=== PATIENT | male | born 1990 | race Caucasian/White ===

== ENCOUNTER 2017-05-19 01:59 | Emergency (ER) | payer OTHER ==
[~2017-05-19] VITALS: Ht 185.4 cm; Wt 72.6 kg
[2017-05-19] MEDS ORDERED: IBUPROFEN600 MG PO (02:48)
[2017-05-19] MEDS ORDERED: THERMAZENE50 GM TOP (02:56)
== END 2017-05-19 03:24 | disposition home or self-care (01) ==
LOC: ED 01:59
PROC: 2W2TX4Z Dressing of Left Foot using Bandage (ICD-10-PCS; principal; 2017-05-19)
DX: T25.422A Corrosion of unspecified degree of left foot, initial encounter (principal); T52.8X1A Toxic effect of other organic solvents, accidental (unintentional), initial encounter
CPT/HCPCS: 16020; 99283